=== PATIENT | male | born 1945 | race Caucasian/White ===

== ENCOUNTER 2018-05-16 12:54 | Outpatient (CLI) | payer MEDICARE, OTHER ==
[~2018-05-16] VITALS: Ht 167.6 cm; Wt 86.0 kg
[~2018-05-16 12:54] MED LIST: ASPIRIN 81M81 MG/TA2 PO; CEPHALEXIN500 M1 PO; GLUCOPHAGE500 MG/TAB PO; GOOD SENSE ASP325 M1 PO; KENALOG-1010 MG/ML; MULTAQ400 M1 PO; NEXIUM 40MG40 MG PO; NEXIUM40 MG PO; NITROSTAT0.4 MG/TAB SL; PRADAXA 150MG150 MG PO; TAMBOCOR 1100 MG/TAB PO; TIKOSYN0.25 MG PO; TOPROL XL 50MG50 MG PO; VITAMIN B12250 MCG PO; ZESTRIL 5MG5 MG PO; ZOCOR 40MG40 MG PO
[2018-05-16 13:44] LABS: INR 1.2 (0.8-3.0); PROTHROMBIN TIME 13.5 SECONDS (9.7-12.8)
[2018-05-16 13:47] LABS: MEAN CELL VOLUME 88 fl (80.0-100.0); MEAN CORPUSCULAR HEMOGLOBIN 30 pg (27.0-31.0); MEAN CORPUSCULAR HGB CONC 35 g/dl (33.0-37.0); MEAN PLATELET VOLUME 9.5 fl (7.4-10.4); PLATELET COUNT 232 K/mm3 (130-400); RED BLOOD COUNT 5.26 M/mm3 (4.20-5.60); REDCELL DISTRIBUTION WIDTH-CV 12.6 % (11.5-14.5)
[2018-05-16] MEDS ORDERED: NORCO 325 MG-7.1 TAB PO (14:10)
[2018-05-16] MEDS ORDERED: PROTONIX20 MG ×2 (14:11→14:12)
[2018-05-16] MEDS ORDERED: TIAZAC180 MG PO (14:14)
[2018-05-16] MEDS ORDERED: PRAVACHOL 40MG40 MG PO (14:15)
[2018-05-16] MEDS ORDERED: PACERONE100 MG PO (14:16)
[2018-05-16 14:48] LABS: CALCIUM 9.3 mg/dL (8.4-10.2); CREATININE, serum 0.94 mg/dL (0.66-1.25); POTASSIUM 4.3 mmol/L (3.4-5.0)
[2018-05-16 15:45] VITALS: BP 118/77; PULSE 59; TEMP 97.4
[2018-05-16 16:00] VITALS: BP 124/73; PULSE 59
[2018-05-16 16:15] VITALS: BP 119/78; PULSE 60
[2018-05-16 16:30] VITALS: BP 132/82; PULSE 55
== END 2018-05-16 16:30 | disposition home or self-care (01) ==
LOC: COL.RAD 12:54
PROVIDERS: Internal Medicine Interventional Cardiology
DX: I42.2 Other hypertrophic cardiomyopathy (principal); I34.0 Nonrheumatic mitral (valve) insufficiency
CPT/HCPCS: G9654; J7120